=== PATIENT | female | born 1995 | race Caucasian/White ===

== ENCOUNTER → 2016-03-27 | Outpatient (CLI) | payer BC | END | disposition home or self-care (01) | LOC: C.RDSM 07:30 | PROVIDERS: ATTEND Physical Medicine & Rehabilitation Sports Medicine | DX: S89.81XA Other specified injuries of right lower leg, initial encounter (principal); Z96.9 Presence of functional implant, unspecified; Z87.828 Personal history of other (healed) physical injury and trauma; X58.XXXA Exposure to other specified factors, initial encounter ==

== ENCOUNTER → 2016-07-17 | Outpatient (CLI) | payer BC ==
--- NOTE | 2016-07-17 10:55 | DIAGNOSTIC IMAGING REPORT ---
RIGHT KNEE 4 OR MORE CLINICAL HISTORY: Right medial knee pain COMPARISON: 03/27/2016 DISCUSSION: There are postsurgical changes are prior ACL repair. No acute fractures or dislocations are visualized. On the tunnel view, there is a stable contour deformity of the medial femoral condyle. IMPRESSION: No significant change from the prior study. Postsurgical changes of an ACL repair. No fractures are visualized. Electronically signed by: Zbigniew Nunez M.D. 07/17/2016 10:54 AM Dictated Date/Time: 07/17/2016 10:52 AM
== END | disposition home or self-care (01) ==
LOC: C.RDSM 10:45
PROVIDERS: ATTEND Physician Assistant
DX: M25.561 Pain in right knee (principal)

== ENCOUNTER → 2016-07-21 | Outpatient (CLI) | payer BC ==
--- NOTE | 2016-07-21 15:39 | DIAGNOSTIC IMAGING REPORT ---
MRI OF THE RIGHT KNEE WITHOUT CONTRAST CLINICAL HISTORY: Medial right knee pain. History of ACL reconstruction and meniscal repair. COMPARISON STUDY: Right knee radiographs July 17, 2016. TECHNIQUE: Utilizing a 1.5 Debora magnet and dedicated coil, multiplanar, multiecho imaging of the right knee was performed without intravenous or intraarticular contrast. FINDINGS: Alignment of the right knee is anatomic. Extensor mechanism is intact. There are post surgical findings consistent with an ACL reconstruction. Note is made of indistinctness of the mid aspect of the graft but the graft appears to be intact. The posterior cruciate ligament is intact. The medial collateral ligament and lateral collateral ligament complex are also intact. There is no lateral meniscal tear. There is oblique signal abnormality within the posterior horn and body of the medial meniscus which extends to the femoral articular surface. There is adjacent susceptibility artifact consistent with surgical material. This may reflect postsurgical change. There is moderate chondrosis of the posterior aspect of the medial femoral condyle. Otherwise, cartilage appears intact. IMPRESSION: 1. Status post ACL reconstruction. Graft intact. 2. Signal abnormality within the posterior horn and body of the medial meniscus. This is likely postsurgical. A meniscal tear could appear similar. 3. Moderate chondrosis with subchondral signal abnormality of the medial femoral condyle. Electronically signed by: Zack Rasmussen M.D. 07/21/2016 3:38 PM Dictated Date/Time: 07/21/2016 11:55 AM
== END | disposition home or self-care (01) ==
LOC: C.MRI 10:40
PROVIDERS: ATTEND Physician Assistant
DX: M25.561 Pain in right knee (principal)

== ENCOUNTER → 2017-01-02 | Day surgery (SDC) | payer BC ==
[2016-12-14 13:51] VITALS: Ht 157.5 cm; Wt 84.1 kg
[~2017-01-02] VITALS: Ht 157.5 cm; Wt 84.1 kg
[~2017-01-02] MED LIST: ATROPINE SULFATE 0.1 MG/ML 5ML SYR IV PRN; BUPIVACAINE/EPINEPHRINE 0.5% MPF 1:200,000 30 ML VIAL ONE; DEXAMETHASONE SOD INJ 4 MG/ML VIAL ONE; EpHEDrine SULFATE INJ 50 MG/ML AMP IV PRN; FENTANYL CITRATE INJ 50 MCG/1 ML 2 ML VIAL IV PRN; FENTANYL CITRATE INJ 50 MCG/1 ML 2 ML VIAL ONE; HYDROCODONE/ACETAMOPHEN 5/325MG TAB PO PRN; LACTATED RINGER'S 1000ML 1,000 ML IV SCH; LIDOCAINE HCL 2% 2 ML VIAL (20MG/ML) ONE; MIDAZOLAM HCL 1 MG/ML 2ML VIAL ONE; MORPHINE SULFATE PF 2MG/2ML SYR ONE; ONDANSETRON INJ 2 MG/ML 2 ML VIAL IV PRN; ONDANSETRON INJ 2 MG/ML 2 ML VIAL ONE; PROPOFOL IV EMULSION 10 MG/ML 20 ML VIAL IV ONE; SCOPOLAMINE 1.5 MG TDSY TD ONE; SODIUM CHLORIDE 0.9% 1000ML 1,000 ML IV SCH
--- NOTE | 2017-01-02 06:56 | History & Physical Bridge Note ---
H&P Re-Evaluation Bridge Note: I have examined the patient, reviewed the History & Physical and in the interval since the performance of the History & Physical I have noted the following changes of clinical significance: consent obtained .No changes noted
--- NOTE | 2017-01-02 06:58 | Discharge Instructions ---
Discharge Instructions Date of Service Jan 02, 2017. Visit Reason for Visit: Right Knee Synovial Impingement, Meniscus Tear Discharge Discharge Diagnosis / Problem: same Discharge Goals Goal(s): Decrease discomfort, Improve function Medications Stopped Medications Name(s): na Restart Stopped Medication(s): use all scripts as directed Activity Recommendations Activity Limitations: as noted below Lifting Limitations: until after follow-up appointment Exercise/Sports Limitations: until after follow-up appointment May Resume Sexual Activity: when tolerated Shower/Bathe: keep incision dry Driving or Machine Use: resume 3 days after discharge Weightbearing Status: Right weightbearing (as tolerated) Anesthesia . Post Anesthesia Instructions: If you have had General Anesthesia or IV Sedation: * Do not drive today. * Resume driving when surgeon permits. * Do not make important decisions or sign legal documents today. * Call surgeon for: 1. Temperature elevations greater than 101 degrees F. 2. Uncontrollable pain. 3. Excessive bleeding. 4. Persistent nausea and vomiting. 5. Medication intolerance (nausea, vomiting or rash). * For nausea and vomiting use only clear liquids such as: tea, soda, bouillon until nausea subsides, then gradually increase diet as tolerated. * If you have any concerns or questions, call your surgeon's office. If physician is unavailable and it is an emergency, call 911 or go to the nearest emergency room. . Instructions / Follow-Up Instructions / Follow-Up The following are instructions to follow after your Arthroscopic Knee Surgery. ACTIVITY RECOMMENDATIONS: * Minimize activity until your first visit after surgery. * No excessive walking, jogging, sports or laboring. * Return to activity is individualized. Most patients are able to return to every day activities within one month. * Return to sports or intensive labor usually occurs at 2-3 months. * Driving is not permitted until at least your first postoperative visit at a minimum. Please ask your doctor when it is safe to resume driving. If you have an automatic vehicle and your left leg has been operated on, then you may begin driving as soon as you are comfortable and can drive safely. SCHOOL/WORK RECOMMENDATIONS: * You may return to sedentary work or school when you are feeling more comfortable. This is usually 3-7 days after surgery. * Expect increased discomfort with increased activity. Continue to elevate and ice the leg as much as possible. MEDICATIONS: * You will have a prescription for pain medication and an anti-inflammatory medication after surgery. * Use the pain medication for severe pain and the anti-inflammatory for less severe pain. Once the pain medication has run out, try to use the anti-inflammatory medication. If this is not effective, contact the office for assistance. * The pain medication may cause nausea, constipation and drowsiness. You should see how they affect you before driving or similar activity. * The anti-inflammatory medication may cause stomach upset and bleeding. If this occurs let your doctor know immediately . * Take a stool softener like Colace or a laxative like Senokot to prevent constipation. DIET: * Resume previous diet. SPECIAL CARE: ICE: You have the option of an ice cooler, gel packs or ice bags. * If you have an ice cooler, refer to the instructions for that device. The ice cooler may be used continuously. * If you do not have an ice cooler, you will need to use ice bags or gel packs. Do not apply ice directly to the skin. Use a thin dressing or donna shirt between the skin and ice bag. Apply ice for 20-30 minutes and repeat every 2-4 hours. This is especially important for the first 7-10 days after surgery. Once the pain improves, use ice as needed. ELEVATION: * Keep your leg elevated at or above the level of your heart as much as possible. * Expect some increased discomfort and swelling if you are standing for any length of time. * When lying down, avoid placing anything under your knee. Rather, prop your leg up by placing several pillows under your heel or calf. DRESSING: * Your dressing will be changed at your first therapy appointment approximately 4-5 days after surgery. Band-aids, tape strips or gauze may be applied. You may then change your dressing daily. * Reapply dressing followed by the Raymond wrap or Tubi-air press operator stockinet and EBIce cooling pad (if chosen). * Always wash your hands prior to touching the incision area. * Once the stitches are removed, you may leave the wound open to air or cover with an Raymond wrap or Tubi-air press operator stockinet. * If you have been given a white elastic stocking (CHELSY hose), wear as much as possible for the first 1-3 weeks depending on swelling. * Expect some bloody drainage for the first few days after surgery. * Leave the tape strips, if present, in place for 5-7 days. * Band-aids and gauze may be changed daily. CRUTCHES: * You will need to use crutches after surgery. * You may gradually progress to full weight bearing as tolerated and wean off the crutches unless otherwise advised. * Your therapist can provide assistance weaning off crutches. * Patients who have a microfracture done may need to be toe-touch weight- bearing for 4-6 weeks. BATHING: * You may shower or sponge-bathe immediately after surgery. * The dressing will need to be covered with a plastic bag or plastic wrap until the dressing is changed on the fourth or fifth day after surgery. * Once the dressing has been changed on the fourth or fifth day after surgery, you may shower and get the incision wet. * Wash with regular soap and water. * Do not bathe (submerge the incision), soak, swim or use a hot tub until the incision is completely healed over with normal skin and the doctor has given the OK to proceed. * There is no need to apply any ointments, powders or salves to your incision. * Do not apply alcohol or hydrogen peroxide directly to the incision. * Diluted peroxide (50:50 mixture with sterile saline) may be used to clean dried blood from around the incision area. BRACE: * Bracing is generally not needed after routine Arthroscopic Knee surgery. THERAPY: * You will begin therapy four or five days after surgery. * Organized therapy with the therapist is important for the first 4-6 weeks after surgery. During that time you will attend therapy 1-3 times per week. * You will also need to do daily exercises for range of motion and strength as instructed. PROBLEMS/QUESTIONS: * If you have any problems such as severe pain, numbness, tingling or high fevers or if you have any questions, please contact the office at [phone]. * It is not uncommon to have some numbness and tingling after the surgery especially if you have had a nerve block done. This should gradually improve over the first 1- 2 days. If this persists longer or worsens please contact the office. FOLLOW UP VISIT: * If not already scheduled, please call the office at to schedule a follow-up appointment for 10 days, 6 weeks and 3 months after surgery. Diet Recommendations Recommended Home Diet: resume previous diet Procedures Procedures Performed: see op note Pending Studies Studies pending at discharge: no Medical Emergencies . Who to Call and When: Medical Emergencies: If at any time you feel your situation is an emergency, please call 911 immediately. . Non-Emergent Contact Non-Emergency issues call your: Specialist Call Non-Emergent contact if: temperature is above 101.5, wound has increased drainage, wound has increased redness, wound has increased pain . . "Provider Documentation" section prepared by Masood Gibbs. .
--- NOTE | 2017-01-02 06:59 | History & Physical Bridge Note ---
H&P Re-Evaluation Bridge Note: I have examined the patient, reviewed the History & Physical and in the interval since the performance of the History & Physical I have noted the following changes of clinical significance: No changes noted
[2017-01-02] MEDS: CEFAZOLIN 2000MG IV PUSH 10 ML IV SCH ×2 (07:23→08:38)
--- NOTE | 2017-01-02 09:11 | [facility] Post Operative Brief Note ---
Immediate Operative Summary Operative Date Jan 02, 2017. Pre-Operative Diagnosis Right Knee Synovial Impingement, Meniscus Tear Post-Operative Diagnosis retear mm /synovitis Procedure(s) Performed ascopy partial medial menisectomy Surgeon Dr Gibbs Cartographic Aide Surgeon(s) KIMBERLEY Thorne Estimated Blood Loss trace Findings see op note Fluids (cc crystalloids) 500cc Specimens none Drains none Anesthesia LMA/IA block Complication(s) None Disposition Recovery Room / PACU
--- NOTE | 2017-01-02 09:27 | OPERATIVE REPORT ---
DATE OF OPERATION: 01/02/2017 SURGEON: Masood Gibbs MD. RECOVERY AUDITOR: Taran Walden PA-C. No resident or fellow available. PREOPERATIVE DIAGNOSIS: Medial meniscus tear, right knee with synovial impingement. POSTOPERATIVE DIAGNOSIS: Same. OPERATION PERFORMED: 1. Exam under anesthesia. 2. Diagnostic arthroscopy. 3. Arthroscopic partial medial meniscectomy of retear of medial meniscus and incidental debridement and synovectomy and incidental chondroplasty of the patella. PERIOPERATIVE SITUATION: Medically cleared female with intractable knee pain. Physical exam, x-ray and MRI scan consistent with medial meniscus injury. At this point in time, she has failed conservative management and wants to proceed with surgical treatment. Options were discussed including meniscus repair. DESCRIPTION OF PROCEDURE: The patient appropriately identified, site verified, consent verified, 2 grams of Ancef confirmed as being given. The knee was examined revealing a stable Briana, pivot shift, and anterior drawer test. There was a scant effusion. Under sterile technique, an intra-articular block was applied with 10 mL of 0.5% plain Marcaine and 10 mL of 2% plain lidocaine. An intraarticular block also had 5 mg of Duramorph. The knee was then prepped and draped in usual routine fashion. No tourniquet was utilized or applied. Inframedial and inferolateral portals then injected with 5 mL of 0.5% Marcaine with epinephrine. Inspection of the joint revealed some synovitis. This was incidentally debrided at the end of the case. There was some minor chondral changes of the patella which were incidentally debrided. The lateral compartment was healthy. The ACL graft was healthy. The medial meniscus had a retear with an unstable flap and an unstable bucket component with an exposed suture. This was then trimmed to a stable balanced contoured rim. The tissue was not healthy enough to repair. This resected the posterior third of the meniscus. The rest of the meniscus was stable to probing. The procedure was then terminated after the knee was copiously irrigated. All instruments and fluid removed. The portals closed with 3-0 nylon, dressed with Xeroform, 4 x 4 gauze, sterile Webril, ABD pads and above knee CHELSY stocking. The patient will be weightbearing to tolerance, range of motion to tolerance. DVT per protocol. Estimated blood loss, trace. Cystoids 500 mL. I attest to the content of the Intraoperative Record and any orders documented therein. Any exception s are noted below.
[2017-01-02 10:13] VITALS: TEMP 37.2
--- NOTE | 2017-01-02 10:46 | Anesthesia Progress Nt - [facility] ---
Anesthesia Post Op Note Date & Time Jan 02, 2017 at 10:46 Vital Signs Vital Signs Past 12 Hours Date Time Temp Pulse Resp B/P (MAP) Pulse Ox O2 Delivery O2 Flow Rate FiO2 01/02/17 10:13 37.2 80 16 113/62 (79) 97 Room Air 01/02/17 10:05 84 13 96 01/02/17 10:05 85 13 01/02/17 10:01 117/67 01/02/17 10:00 86 16 96 01/02/17 10:00 89 16 01/02/17 09:59 37.2 100 16 117/67 96 Room Air 01/02/17 09:56 123/63 01/02/17 09:55 96 19 01/02/17 09:55 97 19 98 01/02/17 09:51 126/70 01/02/17 09:50 75 13 99 01/02/17 09:50 77 13 01/02/17 09:46 131/68 01/02/17 09:45 76 14 98 01/02/17 09:45 78 14 01/02/17 09:41 122/72 01/02/17 09:40 93 25 100 01/02/17 09:40 93 25 01/02/17 09:36 128/73 01/02/17 09:35 104 28 100 01/02/17 09:35 102 28 01/02/17 09:31 127/76 01/02/17 09:30 99 17 01/02/17 09:30 101 17 99 01/02/17 09:26 134/78 01/02/17 09:25 105 11 99 01/02/17 09:25 106 11 01/02/17 09:20 37.2 100 16 130/70 100 Mask 6 01/02/17 09:20 102 130/70 100 01/02/17 09:20 102 01/02/17 07:07 37.0 90 16 157/103 (121) 100 Room Air Notes Mental Status: alert / awake / arousable, participated in evaluation Pt Amnestic to Procedure: Yes Nausea / Vomiting: adequately controlled Pain: adequately controlled Airway Patency, RR, SpO2: stable & adequate BP & HR: stable & adequate Hydration State: stable & adequate Anesthetic Complications: no major complications apparent
[2017-01-02 10:57] VITALS: BP 125/69; PULSE 79; O2SAT 96
--- NOTE | 2017-01-02 15:29 | [facility] Operative Report ---
Operative Report Operative Date Jan 02, 2017. Pre-Operative Diagnosis Right Knee Synovial Impingement, Meniscus Tear Post-Operative Diagnosis Right knee retear mm /synovitis Procedure(s) Performed Right knee ascopy partial medial menisectomy Surgeon Dr Gibbs Board Certified Music Therapist Surgeon(s) KIMBERLEY Thorne Estimated Blood Loss trace Findings Right knee medial meniscal tear and synovitis Fluids (cc crystalloids) 500cc Specimens none Drains none Complication(s) None Disposition Recovery Room / PACU Indications This 21-year-old white female presented to the office with complaints of recurrent medial right knee pain. She previously had an anterior cruciate ligament reconstruction elsewhere and subsequent knee arthroscopy. She was doing well until re-injuring herself. She had tried conservative care measures without success. X-ray and MRI were obtained. She elected to proceed with surgical intervention after being educated about potential risks and outcomes. Description of Procedure Patient was taken to the operating room where she was given general anesthesia. She was prepped and draped in usual sterile fashion. Please see Dr. Gibbs's operative report for specifics of the procedure. I was present for the entire case from initial patient positioning through final wound closure. Assistance was provided in arthroscopy, hemostasis, and final wound closure. Patient was taken to the recovery room in satisfactory condition. I attest to the content of the Intraoperative Record and any orders documented therein. Any exceptions are noted below.
== END | disposition home or self-care (01) ==
LOC: X.SURG 06:37
PROVIDERS: ATTEND Physical Medicine & Rehabilitation Sports Medicine
DX: M23.203 Derangement of unspecified medial meniscus due to old tear or injury, right knee (principal); M25.861 Other specified joint disorders, right knee

== ENCOUNTER → 2017-03-28 | Outpatient (CLI) | payer BC ==
--- NOTE | 2017-03-28 10:50 | DIAGNOSTIC IMAGING REPORT ---
R KNEE 4 OR MORE HISTORY: 21 years-old Female RT KNEE PAIN acute right-sided knee pain with prior ACL repair COMPARISON: Right knee radiographs 07/17/2016 TECHNIQUE: AP view of the bilateral knees with sunrise, AP axial and lateral views of the right knee FINDINGS: Postoperative changes seen compatible with prior right knee ACL repair. No acute fracture or dislocation. There is a 10 mm surface osteophyte involving the medial femoral condyle. No osteochondral defect identified. Small knee joint effusion. IMPRESSION: 1. Postoperative changes from prior right ACL repair without acute bony abnormality identified. 2. 10 mm surface osteophyte of the medial femoral condyle. 3. Small joint effusion. The above report was generated using voice recognition software. It may contain grammatical, syntax or spelling errors. Electronically signed by: Ever Wells M.D. 03/28/2017 10:48 AM Dictated Date/Time: 03/28/2017 10:46 AM
== END | disposition home or self-care (01) ==
LOC: C.RDSM 10:25
PROVIDERS: ATTEND Physician Assistant
DX: S83.411A Sprain of medial collateral ligament of right knee, initial encounter (principal); X58.XXXA Exposure to other specified factors, initial encounter; Z87.828 Personal history of other (healed) physical injury and trauma; M25.761 Osteophyte, right knee; M25.461 Effusion, right knee